=== PATIENT | male | born 1955 | race Caucasian/White ===

== ENCOUNTER 2016-06-19 17:46 | Emergency (ER) | payer OTHER, MEDICAID ==
[2016-06-19 17:57] VITALS: O2SAT 92
--- NOTE | 2016-06-19 18:28 | EDPHY ---
H & P Time Seen by Provider: 06/19/16 18:01 HPI/ROS: CHIEF COMPLAINT: Wound check HISTORY OF PRESENT ILLNESS: 52-year-old male presents emergency department requesting a wound check of a avulsion laceration that he sustained on his left index finger over 24 hours ago. Patient reports he cut it on a piece of brass in his garage. Tetanus is up-to-date, he states he cleaned it really well and placed a bandage on it, he went to his doctor at [facility] today and a redressed it. Patient returns to the emergency department tonight requesting a recheck and dressing. He is [id number], denies numbness or tingling to this finger, denies other complaints. Smoking Status: Never smoked Physical Exam: GEN: Awake, alert, oriented, no acute distress RESP: nl resp effort MSK: Left index finger with full active flexion and extension against resistance at MCP, PIP and DIP joint, 2 point discrimination intact, cap refill less than 2 seconds SKIN: 1 cm x 1 cm deep avulsion laceration to left index finger Constitutional: Initial Vital Signs Temperature (C) 37 C 06/19/16 17:55 Heart Rate 81 06/19/16 17:55 Respiratory Rate 15 06/19/16 17:55 Blood Pressure 147/94 H 06/19/16 17:55 O2 Sat (%) 92 06/19/16 17:55 O2 Delivery Mode Room Air Allergies/Adverse Reactions: No Known Allergies Allergy (Verified 06/19/16 17:54) Home Medications: Medication Instructions Recorded Pregabalin [Lyrica] 150 mg PO TID 06/29/12 Multivitamins [Multivitamin (*)] 1 tab PO DAILY 07/07/12 Famotidine [Pepcid 20 MG (*)] 40 mg PO HS 12/28/14 Methadone HCl [Methadone Oral 120 mg PO DAILY 12/28/14 Liquid] Metoprolol Succinate Xr [Toprol Xl 50 mg PO DAILY 12/28/14 50 mg (*)] MDM/Departure - MDM ED Course/Re-evaluation: I contacted the wound care nurse in the hospital who consulted on this patient. She placed a dressing on this patient and will follow up with him in wound care clinic. Wound was cleaned by emergency department internal medicine veterinary technician prior to dressing placement. - Depart Disposition: Home, Routine, Self-Care Clinical Impression: Laceration of left index finger Condition: Good Instructions: Skin Avulsion (ED) Additional Instructions: Keep your dressing in place until you follow up with the wound care clinic. Call in the morning to schedule this at 1st available appointment. Return to the emergency department for any new symptoms or concerns. Referrals: [facility] [Clinic] - As per Instructions
[2016-06-19 19:27] VITALS: BP 101/66; PULSE 60; RESP 14; TEMP 98.2
== END 2016-06-19 19:26 | disposition home or self-care (01) ==
DX: S61.211D Laceration without foreign body of left index finger without damage to nail, subsequent encounter (principal); W45.8XXD Other foreign body or object entering through skin, subsequent encounter

== ENCOUNTER 2016-07-07 13:37 | Emergency (ER) | payer OTHER, MEDICAID ==
[2016-07-07] MEDS ORDERED: ONDANSETRON 4 MG/2 ML VIAL IVP ONE (14:21)
[2016-07-07] MEDS ORDERED: NS 1,000 ML IV ONE (14:21)
[2016-07-07 14:28] LABS: % IMMATURE GRANULYOCYTES 0.4 % (0.0-1.1); ABSOLUTE IMMATURE GRANULOCYTES 0.03 10^3/uL (0.00-0.10); ADD DIFF? NO; ADD MORPH? NO; ADD SCAN? NO; ATYPICAL LYMPHOCYTE FLAG 10 (0-99); FRAGMENT RBC FLAG 0 (0-99); HEMATOCRIT 41.4 % (40.0-51.0); HEMOGLOBIN 13.8 g/dL (13.7-17.5); LEFT SHIFT FLG 0 (0-99); LIPEMIA HEMOLYSIS FLAG 80 (0-99); MEAN CELL HEMOGLOBIN 26.1 pg (27.9-34.1); MEAN CELL HEMOGLOBIN CONCENTR. 33.3 g/dL (32.4-36.7); MEAN CELL VOLUME 78.3 fL (81.5-99.8); MEAN PLATELET VOLUME 10.2 fL (8.7-11.7); PLATELET CLUMPS FLAG 0 (0-99); PLATELET COUNT 167 10^3/uL (150-400); RED BLOOD CELL COUNT 5.29 10^6/uL (4.40-6.38); RED CELL DISTRIBUTION WIDTH 14.5 % (11.5-15.2)
--- NOTE | 2016-07-07 14:33 | CPEKG ---
Heart Rate: 68 RR Interval: 882 P-R Interval: 160 QRSD Interval: 110 QT Interval: 424 QTC Interval: 451 P Powell: -3 QRS Powell: 71 T Wave Powell: 37 EKG Severity - ABNORMAL ECG - EKG Impression: SINUS RHYTHM EKG Impression: NONSPECIFIC INTRAVENTRICULAR CONDUCTION DELAY Electronically Signed By: Ananth Butt 07-Jul-2016 15:29:25
[2016-07-07 14:45] LABS: ALANINE AMINOTRANSFERASE 38 IU/L (21-72); ALBUMIN 4.4 g/dL (3.5-5.0); ALKALINE PHOSPHATASE 66 IU/L (38-126); ANION GAP 11 mEq/L (8-16); ASPARTATE AMINOTRANSFERASE 24 IU/L (17-59); BILIRUBIN,TOTAL 0.7 mg/dL (0.1-1.4); BILIRUBIN-CONJUGATED 0.4 mg/dL (0.0-0.5); BILIRUBIN-UNCONJUGATED 0.3 mg/dL (0.0-1.1); CALCIUM 9.5 mg/dL (8.5-10.4); CARBON DIOXIDE 27 mEq/l (22-31); CHLORIDE 97 mEq/L (97-110); CREATININE 0.8 mg/dL (0.7-1.3); GLOMERULAR FILTRATION RATE > 60; GLUCOSE 139 mg/dL (70-100); POTASSIUM 3.8 mEq/L (3.5-5.2); SODIUM 135 mEq/L (134-144)
[2016-07-07 14:57] LABS: TROPONIN I < 0.012 ng/mL (0-0.034)
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
[2016-07-07 15:51] VITALS: BP 182/117; PULSE 63; RESP 16; TEMP 97.9; O2SAT 94
== END 2016-07-07 15:49 | disposition home or self-care (01) ==
DX: R11.2 Nausea with vomiting, unspecified (principal); I10 Essential (primary) hypertension; F17.200 Nicotine dependence, unspecified, uncomplicated

== ENCOUNTER 2017-12-11 17:12 | Emergency (ER) | payer OTHER, MEDICAID ==
[2017-12-11] MEDS ORDERED: LORazepam 2 MG/ML INJ IVP ONE ×2 (17:24)
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
[2017-12-11 17:36] LABS: PLATELET COUNT 223 10^3/uL (150-400)
[2017-12-11] MEDS ORDERED: ONDANSETRON 4MG PREPACK#2 BTL TAKEHOME ONE (18:50)
[2017-12-11 19:08] VITALS: BP 138/87
== END 2017-12-11 19:14 | disposition home or self-care (01) ==
LOC: EDUNIT#
DX: R11.2 Nausea with vomiting, unspecified (principal); F11.20 Opioid dependence, uncomplicated; Z91.14 Patient's other noncompliance with medication regimen; B19.20 Unspecified viral hepatitis C without hepatic coma; I10 Essential (primary) hypertension; F12.10 Cannabis abuse, uncomplicated
CPT/HCPCS: 96374; 99284; J2060